=== PATIENT | female | born 1985 | race African-American/Black ===

== ENCOUNTER 2016-09-27 05:11 | Inpatient (IN) | payer OTHER ==
[2016-09-27] VITALS (8 sets, daily range): BP systolic 103–109; BP diastolic 48–79
[~2016-09-27] VITALS: Ht 162.6 cm; Wt 76.4 kg
[~2016-09-27 05:11] MED LIST: Motrin PO; NOHOMEMEDS; Percocet 5/325,Endoc PO
[2016-09-27 06:18] LABS: BASOPHIL COUNT 0.1 K/uL (0-0.1); EOSINOPHIL (%) 1.8 % (0-5); EOSINOPHIL COUNT 0.2 K/uL (0-0.3); HEMATOCRIT 31.5 % (36.0-46.0); IMMATURE GRANULOCYTE (%) 1.3 % (0.0-0.7); IMMATURE GRANULOCYTE COUNT 0.1 K/uL; INSTRUMENT ABS NEUTROPHIL CT 5.9 K/uL; LYMPHOCYTE COUNT 2.3 K/uL (1.0-2.8); MCH 25.3 PG (29.0-34.0); MCHC 31.7 G/DL (30.0-36.0); MCV 79.7 FL (83-99); MEAN PLAT.VOLUME 10.6 uM^3 (9.5-12.4); MONOCYTE (%) 11.1 % (3-12); MONOCYTE COUNT 1.1 K/uL (0-0.8); NEUTROPHIL (%) 61.2 % (45-76); NEUTROPHIL COUNT 5.9 K/uL (1.8-6.4); NRBC (%) 0.2 /100 WBC (0-0); PLATELET COUNT 214 K/uL (156-360); RBC DIS.WIDTH-SD 40.6 % (39-53); RED BLOOD COUNT 3.95 M/uL (3.80-5.20); WHITE BLOOD COUNT 9.6 K/uL (4.1-10.2)
[2016-09-27 06:26] LABS: CHLORIDE 107 mEq/L (99-109); POTASSIUM 3.7 mEq/L (3.7-5.4); SODIUM 137 mEq/L (136-147)
[2016-09-27 06:28] LABS: GLUCOSE 87 mg/dL (70-99)
[2016-09-27 06:29] LABS: ANION GAP 8 MEQ/L (2-14)
[2016-09-27 06:32] LABS: GFR ESTIMATE (CALCULATED) > 59 mL/min/
[2016-09-27 06:33] LABS: UREA NITROGEN (BUN) 5 mg/dL (9-23)
[2016-09-27 08:38] LABS: METH RESISTANT S AUREUS PCR NEGATIVE (NEGATIVE); PROBE CHECK PASS; SPECIMEN PROCESSING CONTROL PASS
[2016-09-28 03:20] VITALS: BP 112/55
[2016-09-28 06:34] LABS: EOSINOPHIL (%) 0.4 % (0-5); EOSINOPHIL COUNT 0.1 K/uL (0-0.3); HEMATOCRIT 28.4 % (36.0-46.0); IMMATURE GRANULOCYTE (%) 1.3 % (0.0-0.7); IMMATURE GRANULOCYTE COUNT 0.2 K/uL; INSTRUMENT ABS NEUTROPHIL CT 11.5 K/uL; LYMPHOCYTE COUNT 2.8 K/uL (1.0-2.8); MCH 25.1 PG (29.0-34.0); MCV 80.9 FL (83-99); MEAN PLAT.VOLUME 10.8 uM^3 (9.5-12.4); MONOCYTE (%) 12.7 % (3-12); MONOCYTE COUNT 2.1 K/uL (0-0.8); NEUTROPHIL (%) 68.9 % (45-76); NEUTROPHIL COUNT 11.5 K/uL (1.8-6.4); NRBC (%) 0.1 /100 WBC (0-0); PLATELET COUNT 182 K/uL (156-360); RBC DIS.WIDTH-SD 41.1 % (39-53); RED BLOOD COUNT 3.51 M/uL (3.80-5.20); WHITE BLOOD COUNT 16.7 K/uL (4.1-10.2)
[2016-09-28 07:39] VITALS: BP 103/58
[2016-09-28 10:57] VITALS: BP 101/59
[2016-09-28 14:44] VITALS: BP 96/56
[2016-09-28 20:02] VITALS: BP 122/58
[2016-09-28 23:17] VITALS: BP 99/58
[2016-09-29 02:51] VITALS: BP 99/57
[2016-09-29 07:47] VITALS: BP 105/65
[2016-09-29 14:52] VITALS: BP 109/73
[2016-09-29 22:40] VITALS: BP 123/83
[2016-09-30 07:18] VITALS: BP 122/69
[2016-09-30] MEDS ORDERED: ASCORBIC ACID500 M3 PO (07:59)
[2016-09-30] MEDS ORDERED: ENDOCET 5-3251 EACH PO (07:59)
[2016-09-30] MEDS ORDERED: FERROUS SULFAT325 MG PO (07:59)
[2016-09-30] MEDS ORDERED: IBUPROFEN800 MG PO (07:59)
[2016-09-30] MEDS ORDERED: DOCUSATE SODIU100 MG PO (07:59)
== END 2016-09-30 10:40 | disposition home or self-care (01) | DRG 765 ==
LOC: 2WEST 05:11 → 2SOUTH 11:39 → 2WEST 09-29 22:17
PROVIDERS: Obstetrics & Gynecology
PROC: 10D00Z1 Extraction of Products of Conception, Low, Open Approach (ICD-10-PCS; principal; 2016-09-27)
DX: O34.211 Maternal care for low transverse scar from previous cesarean delivery (principal); O99.02 Anemia complicating childbirth; D50.9 Iron deficiency anemia, unspecified; D62 Acute posthemorrhagic anemia; Z3A.39 39 weeks gestation of pregnancy; Z37.0 Single live birth
CPT/HCPCS: 80048; 85025; 86900; 86901; 87081; 87641; J0690; J1050; J1100; J1170; J1200; J1885; J2274; J2405; J3010; J7120